=== PATIENT | female | born 1930 | race Caucasian/White ===

== ENCOUNTER 2018-10-30 09:38 | Emergency (ER) | payer MEDICARE ==
[~2018-10-30] VITALS: Ht 157.5 cm; Wt 63.5 kg
[2018-10-30 09:44] VITALS: BP 159/71
--- OUTSIDE RECORDS SUMMARY | 2018-10-30 09:46 | XMS REPORT ---
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 Jun, Active 793360958 Problem Pulmonary hypertension I27.20 Oct, Active 39880069 Problem Paroxysmal atrial tachycardia I47.1 Jun, Active 106259141 Problem Type 2 diabetes mellitus without complication E11.9 Apr, Active 941019650 Problem Unspecified hereditary and idiopathic peripheral neuropathy G60.9 Active 07010336 Problem Memory loss R41.3 Apr, Active 15377984 Problem Shortness of breath R06.02 September, Active 942490309 Problem Macular degeneration (senile) of retina H35.30 Active 984505144 Problem Mixed hyperlipidemia E78.2 Aug, Active 354833356 Problem Functional constipation K59.04 September, Active 812917657 Problem Essential hypertension I10 Active 50101376 Problem Acquired hypothyroidism E03.9 Active 699035978 Problem Insomnia G47.00 September, Active 003632025 Problem Headache R51 September, Active 70284630 ALLERGIES No Information ENCOUNTERS Encounter Location Date Diagnosis [address] [address] September, [address] [address] September, [address] [address] 08 Aug, [address] [address] 14 Jul, 2018 Shortness of breath R06.[address] [address] Jul, [facility] [address] [place] [address] Jun, [facility] [id number] [address] Apr, [facility] [address] [facility] [id number] [address] Apr, [facility] [address] [address] Apr, [facility] [id number] [address] Apr, [facility] [id number] [address] Apr, [facility] [address] [address] Jan, [facility] [address] [address] May, [facility] [id number] [address] Nov, [facility] [id number] [address] Jul, IMMUNIZATIONS No Known Immunizations SOCIAL HISTORY Never Assessed REASON FOR VISIT levothyroxine refill PLAN OF CARE VITAL SIGNS MEDICATIONS Medication Instructions Dosage Frequency Start Date End Date Duration Status Levothyroxine Sodium 125 MCG Orally Once a day 1 tablet on an empty stomach in the morning 24h Jul, 30 day(s) Active RESULTS No Results PROCEDURES No Known procedures INSTRUCTIONS MEDICATIONS ADMINISTERED No Known Medications MEDICAL (GENERAL) HISTORY Type Description Date Medical History Mixed hyperlipidemia Medical History Shortness of breath Medical History Headache Medical History Insomnia Medical History Acquired hypothyroidism Medical History Essential hypertension Medical History Memory loss Medical History Unspecified hereditary and idiopathic peripheral neuropathy Medical History Type 2 diabetes mellitus without complication Medical History Macular degeneration (senile) of retina Medical History Functional constipation Medical History Pulmonary hypertension Medical History Paroxysmal atrial tachycardia Medical History Symptomatic PVCs Surgical History cholecystectomy Surgical History ovarian cyst resection Surgical History appendectomy
--- OUTSIDE RECORDS SUMMARY | 2018-10-30 09:46 | XMS REPORT | Continuity of Care Document ---
Author Organization Unknown Address Unknown Allergies There is no data. Medications There is no data. Problems There is no data. Procedures There is no data. Results Test Result Range BMP - 09/25/18 11:39 GLUCOSE 103 mg/dL 65-99 UREA NITROGEN (BUN) 16 mg/dL 7-25 CREATININE 0.52 mg/dL 0.60-0.88 eGFR NON-AFR. BOLIVIAN 86 mL/min/1.73m2 > OR=60 eGFR 100 mL/min/1.73m2 > OR=60 BUN/CREATININE RATIO 31 (calc) 6-22 SODIUM 140 mmol/L 135-146 POTASSIUM 4.0 mmol/L 3.5-5.3 CHLORIDE 101 mmol/L 98-110 CARBON DIOXIDE 32 mmol/L 20-32 CALCIUM 9.8 mg/dL 8.6-10.4 CBC w/MANUAL DIFF - 09/25/18 11:39 WHITE BLOOD CELL COUNT 9.2 Thousand/uL 3.8-10.8 RED BLOOD CELL COUNT 4.61 Million/uL 3.80-5.10 HEMOGLOBIN 13.5 g/dL 11.7-15.5 HEMATOCRIT 41.8 % 35.0-45.0 MCV 90.7 fL 80.0-100.0 MCH 29.3 pg 27.0-33.0 MCHC 32.3 g/dL 32.0-36.0 RDW 13.2 % 11.0-15.0 PLATELET COUNT 240 Thousand/uL 140-400 MPV 11.0 fL 7.5-12.5 ABSOLUTE NEUTROPHILS 6872 cells/uL 1461-2807 ABSOLUTE MONOCYTES 1067 cells/uL 200-950 ABSOLUTE EOSINOPHILS 193 cells/uL 15-500 ABSOLUTE BASOPHILS 101 cells/uL 0-200 NEUTROPHILS 74.7 % NRG LYMPHOCYTES 10.5 % NRG MONOCYTES 11.6 % NRG EOSINOPHILS 2.1 % NRG BASOPHILS 1.1 % NRG ABSOLUTE LYMPHOCYTES 966 cells/uL 850-3900 PLATELET ESTIMATION ADEQUATE ADEQUATE COMMENT(S) NRG TSH - 09/25/18 11:39 TSH 0.81 mIU/L 0.40-4.50 Encounters ACCT No. Visit Date/Time Discharge Status Pt. Type Provider Facility Loc./Unit Complaint [id number] 09/30/2018 09:00:00 09/30/2018 23:59:59 CLS Outpatient SELF[facility] [id number] 09/25/2018 17:45:00 Document Registration
[2018-10-30 09:57] LABS: HEMATOCRIT 46 % (35-52); HEMOGLOBIN 14.8 G/DL (11.5-16.0); MEAN CORPUSCULAR HEMOGLOBIN 30 PG (25-34); MEAN CORPUSCULAR HGB CONC 33 G/DL (32-36); MEAN CORPUSCULAR VOLUME 93 FL (80-99); PLATELET COUNT 222 10^3/uL (130-400); RED CELL DISTRIBUTION WIDTH 14.6 % (10.0-14.5); WHITE BLOOD COUNT 11.1 10^3/uL (4.3-11.0)
[2018-10-30 09:58] LABS: BASOPHILS # (AUTO) 0.1 10^3/uL (0.0-0.1); BASOPHILS % (AUTO) 1 % (0-10); EOSINOPHILS # (AUTO) 0.2 10^3/uL (0.0-0.3); EOSINOPHILS % (AUTO) 1 % (0-10); LYMPHOCYTES # (AUTO) 1.3 X 10^3 (1.0-4.0); LYMPHOCYTES % (AUTO) 12 % (12-44); MEAN PLATELET VOLUME 10.8 FL (7.4-10.4); MONOCYTES # (AUTO) 1.1 X 10^3 (0.0-1.0); MONOCYTES % (AUTO) 10 % (0-12); NEUTROPHILS # (AUTO) 8.3 X 10^3 (1.8-7.8); NEUTROPHILS % (AUTO) 75 % (42-75)
[2018-10-30 10:22] LABS: ALANINE AMINOTRANSFERASE 10 U/L (0-55); ALKALINE PHOSPHATASE 96 U/L (40-136); BILIRUBIN,TOTAL 0.8 MG/DL (0.1-1.0); BUN/CREATININE RATIO 27; CALCIUM 10.2 MG/DL (8.5-10.1); CARBON DIOXIDE 27 MMOL/L (21-32); CHLORIDE 100 MMOL/L (98-107); CREATININE SERUM 0.55 MG/DL (0.60-1.30); GFR ESTIMATED > 60; GLUCOSE 117 MG/DL (70-105); MAGNESIUM 2.1 MG/DL (1.8-2.4); POTASSIUM 3.9 MMOL/L (3.6-5.0); SODIUM 141 MMOL/L (135-145)
[2018-10-30 10:23] LABS: ALBUMIN 4.4 GM/DL (3.2-4.5); TOTAL PROTEIN 7.5 GM/DL (6.4-8.2)
--- NOTE | 2018-10-30 10:23 | Diagnostic Imaging Report ---
INDICATION: Vision loss. Headaches. TECHNIQUE: Routine non contrast-enhanced axial images were obtained from the skull base to the vertex. Auto Exposure Controls were utilized during the CT exam to meet ALARA standards for radiation dose reduction COMPARISON: None. FINDINGS: The ventricles and cortical sulci are diffusely prominent, compatible with age-related volume loss. There are confluent areas of abnormal, low attenuation in the periventricular white matter. This is consistent with small vessel ischemic changes; age-indeterminate. There is no prior study available for comparison. There is no midline shift or mass-effect. No acute intra-axial hemorrhage is seen. There are no abnormal areas of increased or decreased density to suggest acute hemorrhage or edema. No extra-axial masses or collections are present. The bony calvarium is intact. The visualized paranasal sinuses are unremarkable. The mastoid air cells are clear. IMPRESSION: 1. No acute intracranial abnormality. No CT evidence of mass, acute infarct or intracranial hemorrhage. 2. Small vessel ischemic changes in the periventricular and subcortical white matter; likely chronic. Dictated by: Dictated on workstation # [id number]
--- NOTE | 2018-10-30 10:35 | Diagnostic Imaging Report ---
Indication: Visual loss and headache. Time of exam: 10:02 AM No prior studies available for comparison. The right hemidiaphragm is significantly elevated. There is subsegmental atelectasis in the right base. Lungs are otherwise clear. No effusion or pneumothorax is seen. Impression: Elevated right hemidiaphragm with right basilar subsegmental atelectasis. Dictated by: Dictated on workstation # [id number]
[2018-10-30 10:58] LABS: CLARITY,URINE CLEAR; COLOR,URINE YELLOW; GLUCOSE, URINE (UA) NEGATIVE (NEGATIVE); PH,URINE 7.5 (5-9); PROTEIN,URINE NEGATIVE (NEGATIVE)
[2018-10-30 10:59] LABS: BACTERIA,URINE FEW /HPF; BILIRUBIN,URINE NEGATIVE (NEGATIVE); HYALINE CASTS, URINE RARE /LPF; KETONES,URINE NEGATIVE (NEGATIVE); LEUKOCYTE ESTERASE ,URINE TRACE (NEGATIVE); NITRITE,URINE NEGATIVE (NEGATIVE); SQUAMOUS EPITHELIAL CELL,UR 0-2 /HPF; UROBILINOGEN,URINE 0.2 MG/DL (NORMAL)
[2018-10-30] MEDS ORDERED: HOLD METFORMIN - RECEIVED CONTRAST 20 ML VIAL IV SCH (11:15)
[2018-10-30] MEDS ORDERED: CATHETER FLUSH 10 ML SYR IV PRN (11:15)
[2018-10-30] MEDS ORDERED: IOHEXOL 350 MG/ML 100 ML (OMNIPAQUE 350) VIAL IV ONE (11:15)
[2018-10-30] MEDS ORDERED: NS 100 ML (IVPB) BAG IV ONE (11:15)
--- NOTE | 2018-10-30 11:35 | ED General ---
General Chief Complaint: Neurological Problems Stated Complaint: VISION LOSS; HEADACHE Nursing Triage Note: Patient arrived by EMS for chief complaint of loss of vision (both eyes) and headache located at left yazdanism since yesterday night (not sure what time). Jules EMT-P gave report stated, "pt is alert and oriented, warm and dry. Pt is a full code. There is no weakness to one side or the other. Hx of hypertension and hypothyroidism. 20 Gauge IV started in right forearm and labs drawn." Pt arrived to ER and was moved from stretcher to ER Bed in Room 5. Pt was alert, oriented and had clear speech. No weakness to personal financial counselor. Pt was able to tell me name, location, date, month, year and president. Pt stated pain was a 1 or 2 and was aching. Pt stated she thinks they are making a bigger deal than it needs to be. Nursing Sepsis Screen: No Definite Risk Source of Information: Patient Exam Limitations: No Limitations History of Present Illness Date Seen by Provider: Oct 30, 2018 Time Seen by Provider: 09:35 Initial Comments Patient is a 88-year-old group home patient who presents with left retro- orbital headache and vision loss in both eyes. Symptom onset was yesterday. Brock guaman does not recall time. Patient denies history of headache, denies neck pain, extremity weakness or loss of sensation. No other acute No chest pain palpitations shortness of breath. No fever chills or sweats. No other symptoms or complaints. Patient is not on anticoagulation therapy. Timing/Duration: 12-24 Hours Associated Systoms: Denies Symptoms Allergies and Home Medications Allergies Coded Allergies: Penicillins (Verified Allergy, Unknown, itching, 10/30/18) Patient Home Medication List Home Medication List Reviewed: Yes Review of Systems Review of Systems Constitutional: no symptoms reported, see HPI EENTM: see HPI Respiratory: no symptoms reported Cardiovascular: no symptoms reported Gastrointestinal: no symptoms reported Genitourinary: no symptoms reported Musculoskeletal: no symptoms reported Skin: no symptoms reported Psychiatric/Neurological: See HPI Hematologic/Lymphatic: No Symptoms Reported Immunological/Allergic: no symptoms reported Past Cwlwhje-Bsrutq-Dmqxfb Hx Patient Social History Alcohol Use: Denies Use Recreational Drug Use: No Smoking Status: Never a Smoker 2nd Hand Smoke Exposure: No Recent Foreign Travel: No Contact w/Someone Who Travel: No Recent Infectious Disease Expo: No Recent Hopitalizations: No Physical Abuse: No Sexual Abuse: No Mistreated: No Fear: No Seasonal Allergies Seasonal Allergies: No Past Medical History Surgeries: Yes (colonoscopy, EGD, cholecystectomy) Appendectomy, Hysterectomy Respiratory: No Cardiac: Yes (parosysmal atrial tachycardia,symptomattic PVCs, chronic ischemic heart dis) Atrial Fibrillation, High Cholesterol, Hypertension, Irregular Heartbeat Neurological: Yes (hereditary/idiopathic peripheral neuropathy, insomnia) Headaches /Migraines 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 0oz. 63.521816nl; BMI Method:Stated General Appearance: No Apparent Distress, WD/WN Eyes: Bilateral Eye Normal Inspection, Bilateral Eye PERRL, Bilateral Eye EOMI HEENT: PERRL/EOMI, TMs Normal Neck: Full Range of Motion, Normal Inspection, Supple Respiratory: Chest Non Tender, Lungs Clear Cardiovascular: Regular Rate, Rhythm Neurologic/Psychiatric: Alert, Oriented x3, health care attorney II-XII Norm as Tested Skin: Normal Color Focused Exam Sepsis Stage: Ruled Out Progress/Results/Core Measures Suspected Sepsis Recent Fever Within 48 Hours: No Infection Criteria Present: None New/Unexplained Altered Menta: No Sepsis Screen: No Definite Risk SIRS Temperature:98.1 Pulse: 72 Respiratory Rate: 21 Laboratory Tests 10/30/18 09:44: White Blood Count 11.1H Blood Pressure 159 /71 Mean: 100 Laboratory Tests 10/30/18 09:44: Creatinine 0.55L, INR Comment 1.0, Platelet Count 222, Total Bilirubin 0.8 Results/Orders Lab Results Laboratory Tests Test 10/30/18 09:44 10/30/18 09:45 10/30/18 10:36 Range/Units White Blood Count 11.1 H 4.3-11.0 10^3/uL Red Blood Count 4.88 4.35-5.85 10^6/uL Hemoglobin 14.8 11.5-16.0 G/DL Hematocrit 46 35-52 % Mean Corpuscular Volume 93 80-99 FL Mean Corpuscular Hemoglobin 30 25-34 PG Mean Corpuscular Hemoglobin Concent 33 32-36 G/DL Red Cell Distribution Width 14.6 H 10.0-14.5 % Platelet Count 222 130-400 10^3/uL Mean Platelet Volume 10.8 H 7.4-10.4 FL Neutrophils (%) (Auto) 75 42-75 % Lymphocytes (%) (Auto) 12 12-44 % Monocytes (%) (Auto) 10 0-12 % Eosinophils (%) (Auto) 1 0-10 % Basophils (%) (Auto) 1 0-10 % Neutrophils # (Auto) 8.3 H 1.8-7.8 X 10^3 Lymphocytes # (Auto) 1.3 1.0-4.0 X 10^3 Monocytes # (Auto) 1.1 H 0.0-1.0 X 10^3 Eosinophils # (Auto) 0.2 0.0-0.3 10^3/uL Basophils # (Auto) 0.1 0.0-0.1 10^3/uL Erythrocyte Sedimentation Rate 9 0-30 MM/HR Prothrombin Time 13.0 12.2-14.7 SEC INR Comment 1.0 0.8-1.4 Activated Partial Thromboplast Time 26 24-35 SEC Sodium Level 141 135-145 MMOL/L Potassium Level 3.9 3.6-5.0 MMOL/L Chloride Level 100 98-107 MMOL/L Carbon Dioxide Level 27 21-32 MMOL/L Anion Gap 14 5-14 MMOL/L Blood Urea Nitrogen 15 7-18 MG/DL Creatinine 0.55 L 0.60-1.30 MG/DL Estimat Glomerular Filtration Rate > 60 BUN/Creatinine Ratio 27 Glucose Level 117 H 70-105 MG/DL Calcium Level 10.2 H 8.5-10.1 MG/DL Corrected Calcium 9.9 8.5-10.1 MG/DL Magnesium Level 2.1 1.8-2.4 MG/DL Total Bilirubin 0.8 0.1-1.0 MG/DL Aspartate Amino Transf (AST/SGOT) 16 5-34 U/L Alanine Aminotransferase (ALT/SGPT) 10 0-55 U/L Alkaline Phosphatase 96 40-136 U/L Total Protein 7.5 6.4-8.2 GM/DL Albumin 4.4 3.2-4.5 GM/DL Glucometer 111 H 70-110 MG/DL Urine Color YELLOW Urine Clarity CLEAR Urine pH 7.5 5-9 Urine Specific [place] 1.015 L 1.016-1.022 Urine Protein NEGATIVE NEGATIVE Urine Glucose (UA) NEGATIVE NEGATIVE Urine Ketones NEGATIVE NEGATIVE Urine Nitrite NEGATIVE NEGATIVE Urine Bilirubin NEGATIVE NEGATIVE Urine Urobilinogen 0.2 NORMAL MG/DL Urine Leukocyte Esterase TRACE H NEGATIVE Urine RBC (Auto) NEGATIVE NEGATIVE Urine RBC NONE /HPF Urine WBC 2-5 /HPF Urine Squamous Epithelial Cells 0-2 /HPF Urine Crystals NONE /LPF Urine Bacteria FEW H /HPF Urine Casts PRESENT /LPF Urine Hyaline Casts RARE /LPF Urine Mucus SMALL H /LPF Urine Culture Indicated NO My Orders Orders - RENÉ HERNANDEZ DO Ct Head Wo (10/30/18 09:47) Cbc With Automated Diff (10/30/18 09:47) Comprehensive Metabolic Panel (10/30/18 09:47) Ua Culture If Indicated (10/30/18 09:47) Thyroid Stimulating Hormone (10/30/18 09:47) Ct Angio Head/Neck (10/30/18 09:47) Ekg Tracing (10/30/18 09:47) Protime With Inr (10/30/18 09:47) Partial Thromboplastin Time (10/30/18 09:47) Chest 1 View Ap/Pa Only (10/30/18 09:47) Magnesium (10/30/18 09:47) Erythrocyte Sedimentation Rate (10/30/18 10:28) Hs C Reactive Protein (10/30/18 10:28) Iohexol Injection (Omnipaque 350 Mg/Ml 1 (10/30/18 11:15) Received Contrast (Hold Metformin- Contr (10/30/18 11:15) Sodium Chloride Flush (Catheter Flush Sy (10/30/18 11:15) Ns (Ivpb) (Sodium Chloride 0.9% Ivpb Bag (10/30/18 11:15) Tetracaine 0.5% Ophth Cassandra Sdv (Tetracai (10/30/18 11:45) Medications Given in ED Current Medications Medications Dose Ordered Sig/Roque Route Start Time Stop Time Status Last Admin Dose Admin Iohexol 100 ml ONCE ONCE IV 10/30/18 11:15 10/30/18 11:16 DC 10/30/18 11:05 75 ML Sodium Chloride 10 ml NEEDED PRN IV 10/30/18 11:15 10/30/18 11:05 10 ML Sodium Chloride 100 ml ONCE ONCE IV 10/30/18 11:15 10/30/18 11:16 DC 10/30/18 11:05 85 ML Tetracaine HCl 1 OR 2 DROPS INTO AFFEC... ONCE ONCE OP 10/30/18 11:45 10/30/18 11:46 DC 10/30/18 11:52 1 ML Vital Signs/I&O 10/30/18 10/30/18 09:44 09:44 Temp 98.1 98.1 Pulse 72 72 Resp 21 21 B/P (MAP) 159/71 (100) 159/71 (100) Pulse Ox 92 92 O2 Delivery Room Air Room Air Capillary Refill : Less Than 3 Seconds Blood Pressure Mean: 100 Point of Care Testing Finger Stick Blood Glucose: 111 Departure Communication (Admissions) No focal neurologic deficits on exam exam. CT head/CT angiogram head and neck nonacute. Patient's corrected vision is 20/70 bilaterally. No scalp tenderness, sedimentation rate normal. Unable to check intraocular pressure due to Fabricio-Pen malfunction. Case discussed with Dr. York who will see the patient in the office on Saturday. Recommends holding treatment told his evaluation. Impression Primary Impression: Change in vision Additional Impression: Headache Disposition: 01 HOME, SELF-CARE Condition: Stable Departure-Patient Inst. Patient Instructions: Headache, Adult (DC) RENÉ HERNANDEZ DO Oct 30, 2018 11:35
--- NOTE | 2018-10-30 11:37 | Diagnostic Imaging Report ---
Clinical indication: Patient with vision loss and headache. Exams: 1: Head CT with and without IV contrast. Auto Exposure Controls were utilized during the CT exam to meet ALARA standards for radiation dose reduction. 2: CT angiogram of the head and neck performed with 100 cc of Omnipaque 350 IV contrast. Sagittal and coronal MIP reformations were created for better visualization of vascular anatomy. Comparison: Head CT without contrast dated 10/30/2018. Findings: Head CT: There is no evidence of acute cerebral infarct, intracranial hemorrhage, or gross mass effect. There is no abnormal IV contrast enhancement. The brain parenchymal volume appears appropriate for patient's age. Stable focal and patchy areas of low-attenuation white matter changes involving both cerebral hemispheres and periventricular regions, likely representing chronic small vessel ischemic disease. There is normal perkins-white matter distinction. There is no significant midline shift or herniation. There is no evidence of hydrocephalus. The basal cisterns are unremarkable. The skull, extracranial soft tissue, and orbits are unremarkable. The paranasal sinuses are unremarkable. Temporal bones show no significant abnormality. CT angiogram: There is dental streak hardware artifact which obscures portions of the cervical spine and neck vascular structures at the C2 vertebral body level. Three-vessel aortic arch is seen. The visualized portions of the brachiocephalic artery, and bilateral subclavian arteries are patent. Besides the areas obscured at the C2 level due to dental hardware artifact, the bilateral CCA, bilateral cervical ICA, bilateral ECA, and bilateral cervical vertebral arteries are patent. Dominant bilateral vertebral arteries are seen. Intradural bilateral vertebral arteries, basilar artery, bilateral superior cerebellar arteries, and bilateral level vial setter are patent. There is atherosclerotic disease involving the bilateral cavernous carotid arteries with areas of mild narrowing on the left and mild to moderate narrowing on the right near the paraclinoid region. Otherwise, the petrous and cavernous portions of the bilateral ICA all the way to the terminus are patent. The bilateral MCAs and distal branches are patent. Small caliber right A1 JOLEEN and prominent left A1 JOLEEN is present. There is an azygous A2 JOLEEN seen with branches into the more distal bilateral A2 ACAs. The JOLEEN vessels are patent. The dural venous sinuses are patent as visualized. There is multinodular thyroid gland seen. Largest nodule in the right side is 3.6 cm in greatest axial dimension. The largest nodule in the left side is 2.7 cm in greatest axial dimension. Remainder the neck soft tissue structures show no other significant abnormality. There is mild atelectasis versus scarring in the superior segment of the right lower lobe. There is cervical spine degenerative disease. Impression: 1: Stable CT scan of brain with age related brain parenchymal changes. There is no evidence of acute intracranial process. There is no abnormal IV contrast enhancement. 2: There is atherosclerotic disease involving the bilateral cavernous carotid arteries which demonstrates mild to moderate narrowing on the right and mild narrowing on the left. 3: There are areas of dental hardware artifact which obscures portions of the arterial neck vasculature structures at the C2 level. Otherwise, the remainder of the CT angiogram of the [place] and neck major arterial vascular structures are patent with no significant stenosis, vascular malformation, aneurysm, or dissection. 4: Multinodular thyroid gland. Nonemergent thyroid ultrasound is suggested for further evaluation. Dictated by: Dictated on workstation # [id number]
[2018-10-30] MEDS ORDERED: TETRACAINE 0.5% OPHTH SOLN 4 ML BTL (SINGLE DOSE ONLY) OP ONE (11:45)
--- NOTE | 2018-10-30 14:15 | NUR ---
[facility] was called and informed that the patient is being discharged and has follow up with Dr. York at 0945 on Saturday.
[2018-10-30 14:20] VITALS: BP 139/113
--- NOTE | 2018-10-30 14:30 | NUR ---
Assisted living home staff arrived and is taking pt back home. Discharge instructions were reviewed with pt and staff member. Pt left at this time.
== END 2018-10-30 14:20 | disposition home or self-care (01) ==
LOC: EDUNIT# 09:38 → ER FS 09:41
DX: H53.9 Unspecified visual disturbance (principal); R51 Headache; I10 Essential (primary) hypertension; E03.9 Hypothyroidism, unspecified; I48.91 Unspecified atrial fibrillation; E78.00 Pure hypercholesterolemia, unspecified; E11.42 Type 2 diabetes mellitus with diabetic polyneuropathy; G47.00 Insomnia, unspecified; Z87.19 Personal history of other diseases of the digestive system; Z87.442 Personal history of urinary calculi; Z88.0 Allergy status to penicillin; Z90.49 Acquired absence of other specified parts of digestive tract; Z90.710 Acquired absence of both cervix and uterus
CPT/HCPCS: 36415; 70450; 70496; 70498; 71045; 80053; 81000; 82962; 83735; 84443; 85025; 85610; 85652; 85730; 86141; 93005

== ENCOUNTER → 2019-02-05 | Outpatient (CLI) | payer MEDICARE | LOC: CARD 13:33 | PROVIDERS: ATTEND Internal Medicine Cardiovascular Disease | DX: I08.0 Rheumatic disorders of both mitral and aortic valves (principal) | CPT/HCPCS: 93306 ==

== ENCOUNTER → 2019-03-26 | Outpatient (CLI) | payer MEDICARE ==
--- NOTE | 2019-03-26 11:18 | Diagnostic Imaging Report ---
CLINICAL INDICATION: Patient with multinodular goiter. COMPARISONS: CT angiogram of the head/neck dated 10/30/2018. FINDINGS: THYROID NODULES: There is a 2.7 cm x 2.4 cm x 2.2 cm solid and slightly heterogeneous, predominantly isoechoic nodule, with small calcifications within it, located in the frl-uv-rffnx right thyroid gland. There is small amount of central Doppler flow seen. There is a 2.6 cm x 1.8 cm x 1.4 cm heterogeneous, predominantly hypoechoic nodule involving the mid and upper left thyroid gland region. There are areas of calcification within it. There is small amount of peripheral Doppler flow associated with this nodule. THYROID GLAND: Besides the thyroid nodules, the thyroid gland has normal size, shape and echogenicity. The right lobe measures 4.5 cm x 3.3 cm x 2.8 cm and the left lobe measures 3.9 cm x 2.2 cm x 1.6 cm in their three dimensions. ISTHMUS: The isthmus has minimal thickness with no mass seen. IMPRESSION: 1: There is a 2.6 cm heterogeneous hypoechoic nodule with some calcifications within it, located in the [id number]-ad-yahnf left thyroid gland. Fine-needle aspiration is suggested for further evaluation. 2: There is a 2.7 cm solid nodule, with small calcifications within it, located in [id number] right thyroid gland. Fine-needle aspiration is suggested for further evaluation. Dictated by: Dictated on workstation # [id number]
--- NOTE | 2019-03-26 11:25 | NUR ---
Patient alert and oriented. Dr. Waite present and explained procedure. This RN witnessed signing of consent but was not present during thyroid biopsy procedure.
--- NOTE | 2019-03-26 13:00 | Diagnostic Imaging Report ---
INDICATION: Multinodular goiter. Sonographic guidance was provided for Dr. Waite during fine needle aspiration. Total of 3 passes were made into the solid mass in the right lobe of thyroid and fine-needle aspiration technique was utilized. IMPRESSION: Sonographic guidance for right thyroid mass FNA by Dr. Waite. Dictated by: Dictated on workstation # [id number]
== END ==
LOC: RAD 10:03
PROVIDERS: ATTEND Otolaryngology Otolaryngology/Facial Plastic Surgery
DX: E04.2 Nontoxic multinodular goiter (principal)
CPT/HCPCS: 76536; 88173; 88305